=== PATIENT | male | born 1945 | race Caucasian/White ===

== ENCOUNTER 2020-06-28 08:35 | Day surgery (SDC) | payer MEDICARE, BC ==
[~2020-06-28] VITALS: Ht 180.3 cm; Wt 95.6 kg
[~2020-06-28 08:35] MED LIST: ATOR10; BACL10; CAND32; ESZO1; GABA300; HYDACE10B; LOSARTAN POTAS100 M1; Phendimetrazine35 MG; ZALE10; ZOLP10
== END 2020-06-28 10:28 | disposition home or self-care (01) ==
LOC: ORSCSDS 08:35
PROVIDERS: Surgery
PROC: 0DBL8ZX Excision of Transverse Colon, Via Natural or Artificial Opening Endoscopic, Diagnostic (ICD-10-PCS; principal; 2020-06-28 09:45)
DX: Z12.11 Encounter for screening for malignant neoplasm of colon (principal); Z86.010 Personal history of colon polyps; D12.3 Benign neoplasm of transverse colon; I10 Essential (primary) hypertension; E78.5 Hyperlipidemia, unspecified; E66.9 Obesity, unspecified; Z68.30 Body mass index [BMI] 30.0-30.9, adult; Z79.899 Other long term (current) drug therapy
CPT/HCPCS: 88305; J2704; J7120